=== PATIENT | female | born 1985 | race African-American/Black ===

== ENCOUNTER 2016-06-03 13:49 | Emergency (ER) | payer OTHER ==
[2016-06-03] MEDS ORDERED: SODIUM CHLORIDE 0.9% 1,000 ML IV ONE (14:02)
[2016-06-03] MEDS ORDERED: ONDANSETRON 4 MG/2 ML VIAL IVP STA (14:02)
[2016-06-03 14:34] LABS: Anisocytosis Slight; Basophils % (A) 1 %; CH 28.6; CHCM 31.8; Eosinophils # (A) 0.1 k/uL (0-0.7); Eosinophils % (A) 3 %; HCT 36.5 % (34.0-46.0); HGB 11.4 gm/dL (11.4-16.0); Luc # (Auto) 0.06; Luc % (Auto) 2; Lymphocytes % (A) 33 %; MCH 28.3 pg (25.0-35.0); MCHC 31.3 g/dL (31.0-37.0); MCV 90.4 fL (80.0-100.0); Monocytes # (A) 0.1 k/uL (0-1.0); Monocytes % (A) 3 %; Neutrophils # (A) 1.8 k/uL (1.3-7.7); Neutrophils % (A) 58 %; RBC 4.03 m/uL (3.80-5.40); RDW 16.6 % (11.5-15.5); WBC (Perox) 3.07
[2016-06-03 14:40] LABS: ALT 48 U/L (9-52); AST 68 U/L (14-36); Alkaline Phosphatase 70 U/L (38-126); Anion Gap 12 mmol/L; Blood Urea Nitrogen 9 mg/dL (7-17); Calcium 8.1 mg/dL (8.4-10.2); Carbon Dioxide 23 mmol/L (22-30); Chloride 105 mmol/L (98-107); Glucose 98 mg/dL (74-99); Non-African American GFR(MDRD) >60 (>60 ml/min/1.73 sqM); Sodium 140 mmol/L (137-145); Total Bilirubin 0.7 mg/dL (0.2-1.3); Total Protein 7.2 g/dL (6.3-8.2)
[2016-06-03 14:44] LABS: Potassium 4.1 mmol/L (3.5-5.1)
[2016-06-03 14:46] LABS: Amorphous Sediment,Urine Occasional /hpf; Appearance,Urine Turbid (Clear); Bilirubin,Urine Negative (Negative); Glucose,Urine (UA) Negative (Negative); Ketones,Urine Negative (Negative); Leukocyte Esterase,Urine Negative (Negative); Mucus,Urine Moderate /hpf; Nitrite,Urine Negative (Negative); PH, Urine 5.5 (5.0-8.0); Particle Count 20313; Protein,Urine 1+ (Negative); Squamous Epithelial Cell,Urine 19 /hpf (0-4); UA Billing (MACRO vs. MICRO) MICRO; WBC,Urine 4 /hpf (0-5)
--- NOTE | 2016-06-03 14:47 | ED ---
General Adult HPI - General Chief complaint: Extremity Problem,Nontraumatic Stated complaint: Leg Pain Time Seen by Provider: 06/03/16 14:00 Source: patient Mode of arrival: ambulatory Limitations: no limitations - History of Present Illness Initial comments: 31-year-old female with past medical history of alcoholism and seizures presenting for evaluation of extremity tingling in her left arm today and in bilateral lower extremities yesterday. She states that her symptoms started gradually, are better when she is moving around, and become worse when she sits still. She describes as a numbness tingling but maintains sensation when lifting or grabbing things. There is no radiation of her symptoms anywhere else and she states that there is associated dysuria, nausea, vomiting 2, and diarrhea. She denies any abdominal pain and her last alcoholic drink was a week ago. She states her primary concern is that this is related to her alcohol withdrawal and that she needs to be treated for alcohol withdrawal. She was prescribed Keppra on her last visit here after having another seizure but she states she hasn't been taking those medications because she believes this to be related to the alcohol only. She denies any seizure activity leading up to her presentation today. - Related Data Home Medications Medication Instructions Recorded Confirmed ALPRAZolam [Xanax] 1 mg PO TID PRN 07/05/14 04/17/16 Albuterol Inhaler [Ventolin Hfa 1 - 2 puff INHALATION RT-Q6H PRN 07/05/14 Inhaler] Verapamil HCl [Verapamil ER] 240 mg PO DAILY 07/05/14 04/17/16 Beclomethasone Dipropionate [Qvar 2 puff INHALATION RT-BID 04/17/16 04/17/16 80 mcg] Famotidine [Pepcid] 20 mg PO BID 04/17/16 04/17/16 Previous Rx's Medication Instructions Recorded Dicyclomine [Bentyl] 10 mg PO TID #20 capsule 04/14/16 Nicotine 7Mg/24Hr Patch [Habitrol] 1 patch TRANSDERM DAILY #14 patch 04/18/16 levETIRAcetam [Keppra] 750 mg PO Q12HR #60 tab 04/18/16 Allergies Allergy/AdvReac Type Severity Reaction Status Date / Time Penicillins Allergy Rash/Hives Verified 06/03/16 13:53 Review of Systems ROS Statement: Those systems with pertinent positive or pertinent negative responses have been documented in the HPI. General: Patient denies fever, chills. Admits to nausea and vomiting 2. HEENT: No visual changes. No eye pain. No nasal symptoms. No dysphagia.No odynophagia. No ENT pain. Cardiac: No chest pain. No palpitations. Pulmonary; No dyspnea. Denies cough. GI: No abdominal pain. Positive diarrhea. No constipation. No melena. No hematochezia. : Admits to dysuria but states this is chronic. No hematuria. No hesitancy. No urgency. No renal lithiasis history. Musculoskeletal: No musculoskeletal pain. No myalgia. Orthopedic: Denies fracture history. No arthralgia. Integumentary: Denies rash. Denies pruritis. Neurologic: Denies any lateralizing weakness. Denies numbness. Denies tingling. No seizure activity. Denies TIA or CVA. Heme/Onc: Denies anemia. Denies cancer. Denies adenopathy. ROS Other: All systems not noted in ROS Statement are negative. Past Medical History Past Medical History: Asthma, GERD/Reflux, Hypertension, Seizure Disorder History of Any Multi-Drug Resistant Organisms: None Reported Past Surgical History: No Surgical Hx Reported Additional Past Surgical History / Comment(s): tooth extractions Past Anesthesia/Blood Transfusion Reactions: No Reported Reaction Past Psychological History: Anxiety Smoking Status: Current every day smoker Past Alcohol Use History: None Reported Past Drug Use History: None Reported - Past Family History Mother Family Medical History: Asthma, Diabetes Mellitus, Hypertension General Exam - General Exam Comments Initial Comments: General: The patient is awake and alert, in no distress, and does not appear acutely ill. Eye: Pupils are equal, round and reactive to light, extra-ocular movements are intact; there is normal conjunctiva bilaterally. No signs of icterus. Ears, nose, mouth and throat: There are moist mucous membranes and no oral lesions. Neck: The neck is supple, there is no tenderness or JVD. Cardiovascular: There is a regular rate and rhythm. No murmur, rub or gallop is appreciated. Respiratory: Lungs are clear to auscultation, respirations are non-labored, breath sounds are equal. No wheezes, stridor, rales, or rhonchi. Gastrointestinal: Soft, non-distended, non-tender abdomen without masses or organomegaly noted. There is no rebound or guarding present. No CVA tenderness. Bowel sounds are unremarkable. Back: There is no tenderness to palpation in the midline. There is no obvious deformity. No rashes noted. Musculoskeletal: Normal ROM, no tenderness, There is no pedal edema. There is no calf tenderness or swelling. Sensation intact. Pulses equal bilaterally 2+. Neurological: CN II-XII intact, There are no obvious motor or sensory deficits. Coordination appears grossly intact. Speech is normal. Skin: Skin is warm and dry and no rashes or lesions are noted. Psychiatric: Cooperative, appropriate mood & affect, normal judgment. Limitations: no limitations Course Vital Signs 06/03/16 06/03/16 13:51 14:23 Temperature 97.5 F L Pulse Rate 115 H Respiratory 20 18 Rate Blood Pressure 131/87 O2 Sat by Pulse 99 Oximetry Medical Decision Making - Medical Decision Making 31-year-old female presenting for evaluation of left upper extremity and bilateral lower extremity numbness and tingling since yesterday. There is associated nausea, vomiting, diarrhea, and dysuria. She was last seen for seizures but states she has been taking her seizure medications. History of alcoholism and last drink was a week ago. On physical exam she has no neurologic deficits, cranial nerves II through XII intact, no abdominal pain to palpation and clear lung sounds bilaterally. We'll obtain labs, UA, and provide IV fluids and Zofran. The patient requested a drink and will be provided with a by mouth challenge. Patient reevaluated and had resolution of her symptoms. Labs revealed no significant abnormalities and these were discussed with the patient. She was informed that she would be discharged with instructions to follow-up with her primary care physician on Sunday but to return if her symptoms should worsen or persist. She was further counseled to meet with her neurologist to discuss continuing her antiepileptic medications as she hadn't been taking them since prescription. She stated that she didn't think she had a seizure disorder and that it was likely from her drinking. She further stated she would like to stop drinking completely and was advised to follow-up with her primary care physician for outpatient therapy/counseling. She acknowledged an understanding of this information and agreed with this plan of care. - Lab Data Result diagrams: 06/03/16 14:15 06/03/16 14:15 Lab Results 06/03/16 06/03/16 06/03/16 Range/Units 14:15 14:15 14:35 WBC 3.0 L (3.8-10.6) k/uL RBC 4.03 (3.80-5.40) m/uL Hgb 11.4 (11.4-16.0) gm/dL Hct 36.5 (34.0-46.0) % MCV 90.4 (80.0-100.0) fL MCH 28.3 (25.0-35.0) pg MCHC 31.3 (31.0-37.0) g/dL RDW 16.6 H (11.5-15.5) % Plt Count 241 (150-450) k/uL Neutrophils % 58 % Lymphocytes % 33 % Monocytes % 3 % Eosinophils % 3 % Basophils % 1 % Neutrophils # 1.8 (1.3-7.7) k/uL Lymphocytes # 1.0 (1.0-4.8) k/uL Monocytes # 0.1 (0-1.0) k/uL Eosinophils # 0.1 (0-0.7) k/uL Basophils # 0.0 (0-0.2) k/uL Anisocytosis Slight Sodium 140 (137-145) mmol/L Potassium 4.1 (3.5-5.1) mmol/L Chloride 105 (98-107) mmol/L Carbon Dioxide 23 (22-30) mmol/L Anion Gap 12 mmol/L BUN 9 (7-17) mg/dL Creatinine 0.58 (0.52-1.04) mg/dL Est GFR (MDRD) Af Amer >60 (>60 ml/min/1.73 sqM) Est GFR (MDRD) Non-Af >60 (>60 ml/min/1.73 sqM) Glucose 98 (74-99) mg/dL Calcium 8.1 L (8.4-10.2) mg/dL Total Bilirubin 0.7 (0.2-1.3) mg/dL AST 68 H (14-36) U/L ALT 48 (9-52) U/L Alkaline Phosphatase 70 (38-126) U/L Total Protein 7.2 (6.3-8.2) g/dL Albumin 3.9 (3.5-5.0) g/dL Lipase 281 (23-300) U/L Urine Color Urine Appearance (Clear) Urine pH (5.0-8.0) Ur Specific [place] (1.001-1.035) Urine Protein (Negative) Urine Glucose (UA) (Negative) Urine Ketones (Negative) Urine Blood (Negative) Urine Nitrate (Negative) Urine Bilirubin (Negative) Urine Urobilinogen (<2.0) mg/dL Ur Leukocyte Esterase (Negative) Urine WBC (0-5) /hpf Ur Squamous Epith Cells (0-4) /hpf Amorphous Sediment (None) /hpf Urine Mucus (None) /hpf Urine HCG, Qual Not Detected (Not Detectd) 06/03/16 Range/Units 14:35 WBC (3.8-10.6) k/uL RBC (3.80-5.40) m/uL Hgb (11.4-16.0) gm/dL Hct (34.0-46.0) % MCV (80.0-100.0) fL MCH (25.0-35.0) pg MCHC (31.0-37.0) g/dL RDW (11.5-15.5) % Plt Count (150-450) k/uL Neutrophils % % Lymphocytes % % Monocytes % % Eosinophils % % Basophils % % Neutrophils # (1.3-7.7) k/uL Lymphocytes # (1.0-4.8) k/uL Monocytes # (0-1.0) k/uL Eosinophils # (0-0.7) k/uL Basophils # (0-0.2) k/uL Anisocytosis Sodium (137-145) mmol/L Potassium (3.5-5.1) mmol/L Chloride (98-107) mmol/L Carbon Dioxide (22-30) mmol/L Anion Gap mmol/L BUN (7-17) mg/dL Creatinine (0.52-1.04) mg/dL Est GFR (MDRD) Af Amer (>60 ml/min/1.73 sqM) Est GFR (MDRD) Non-Af (>60 ml/min/1.73 sqM) Glucose (74-99) mg/dL Calcium (8.4-10.2) mg/dL Total Bilirubin (0.2-1.3) mg/dL AST (14-36) U/L ALT (9-52) U/L Alkaline Phosphatase (38-126) U/L Total Protein (6.3-8.2) g/dL Albumin (3.5-5.0) g/dL Lipase (23-300) U/L Urine Color Yellow Urine Appearance Turbid H (Clear) Urine pH 5.5 (5.0-8.0) Ur Specific [place] 1.030 (1.001-1.035) Urine Protein 1+ H (Negative) Urine Glucose (UA) Negative (Negative) Urine Ketones Negative (Negative) Urine Blood Negative (Negative) Urine Nitrate Negative (Negative) Urine Bilirubin Negative (Negative) Urine Urobilinogen 3.0 (<2.0) mg/dL Ur Leukocyte Esterase Negative (Negative) Urine WBC 4 (0-5) /hpf Ur Squamous Epith Cells 19 H (0-4) /hpf Amorphous Sediment Occasional H (None) /hpf Urine Mucus Moderate H (None) /hpf Urine HCG, Qual (Not Detectd) Disposition Clinical Impression: Intractable nausea and vomiting, Diarrhea Disposition: HOME SELF-CARE Condition: Stable Instructions: Gastroenteritis (ED), Dehydration (ED) Referrals: Jake Hernández DO [Primary Care Provider] - 1-2 days Duane Chaney MD [STAFF PHYSICIAN] - 1-2 days Time of Disposition: 16:03
[2016-06-03 16:13] VITALS: BP 135/92; PULSE 92; RESP 16; TEMP 97.7
== END 2016-06-03 16:13 | disposition home or self-care (01) ==
LOC: EC 13:49
DX: R11.2 Nausea with vomiting, unspecified (principal); R19.7 Diarrhea, unspecified; R20.2 Paresthesia of skin; R20.0 Anesthesia of skin; R30.0 Dysuria; F10.20 Alcohol dependence, uncomplicated; K21.9 Gastro-esophageal reflux disease without esophagitis; J45.909 Unspecified asthma, uncomplicated; I10 Essential (primary) hypertension; G40.909 Epilepsy, unspecified, not intractable, without status epilepticus; F41.9 Anxiety disorder, unspecified; F17.200 Nicotine dependence, unspecified, uncomplicated; Z79.899 Other long term (current) drug therapy; Z88.0 Allergy status to penicillin
CPT/HCPCS: 36415; 80053; 83690; 85025; 81001; 81025; 99283; 96374; 96361 ×2; J2405

== ENCOUNTER 2016-06-24 09:16 | Emergency (ER) | payer OTHER ==
[2016-06-24] MEDS ORDERED: SODIUM CHLORIDE 0.9% 1,000 ML IV STA ×3 (09:30→11:11)
[2016-06-24] MEDS ORDERED: METOCLOPRAMIDE 5 MG/ML 2 ML VIAL IVP STA (09:30)
--- NOTE | 2016-06-24 09:41 | ED ---
Abdominal Pain HPI - General Chief Complaint: Abdominal Pain Stated Complaint: ABDOMINAL PAIN Time Seen by Provider: 06/24/16 09:26 Source: patient, RN notes reviewed Mode of arrival: ambulatory Limitations: no limitations - History of Present Illness Initial Comments: 31-year-old female who is an alcoholic presents to the emergency department with a chief complaint of abdominal pain nausea vomiting diarrhea. Patient states that on and off for 2 months. Patient states that she does drink. Patient states she saw her doctor and they were informed that she needs to quit drinking. Patient states that she has had nausea vomiting diarrhea. Patient does admit to generalized diffuse abdominal pain. Patient states this been constant for the past 2 months. Patient states that she did notice some blood in her vomit a few days ago so she was concerned. Patient states there has been blood since. Patient states there is no fevers or chills. Patient denies any other significant health history. Patient states that she did have a cold recently as well as placed on antibiotics that was a few weeks ago. Patient states that she is not currently having any other symptoms at this time. Patient denies any recent fever, chills, shortness of breath, chest pain, back pain, numbness or tingling, dysuria or hematuria, constipation or headaches or visual changes, or any other current symptoms. - Related Data Home Medications Medication Instructions Recorded Confirmed ALPRAZolam [Xanax] 1 mg PO TID PRN 07/05/14 04/17/16 Verapamil HCl [Verapamil ER] 240 mg PO DAILY 07/05/14 04/17/16 Previous Rx's Medication Instructions Recorded Ondansetron Odt [Zofran ODT] 4 mg PO Q8HR PRN #20 tab 06/24/16 Allergies Allergy/AdvReac Type Severity Reaction Status Date / Time Penicillins Allergy Rash/Hives Verified 06/24/16 09:20 Review of Systems ROS Statement: Those systems with pertinent positive or pertinent negative responses have been documented in the HPI. ROS Other: All systems not noted in ROS Statement are negative. Past Medical History Past Medical History: Asthma, GERD/Reflux, Hypertension, Seizure Disorder History of Any Multi-Drug Resistant Organisms: None Reported Past Surgical History: No Surgical Hx Reported Additional Past Surgical History / Comment(s): tooth extractions Past Anesthesia/Blood Transfusion Reactions: No Reported Reaction Past Psychological History: Anxiety Smoking Status: Current every day smoker Past Alcohol Use History: None Reported Past Drug Use History: None Reported - Past Family History Mother Family Medical History: Asthma, Diabetes Mellitus, Hypertension General Exam - General Exam Comments Initial Comments: General: The patient is awake and alert, in no distress, and does not appear acutely ill. Eye: Pupils are equal, round. Ears, nose, mouth and throat: There are moist mucous membranes. Neck: The neck is supple, there is no tenderness. Cardiovascular: There is a regular rate and rhythm. No murmur, rub or gallop is appreciated. Respiratory: Lungs are clear to auscultation, respirations are non-labored, breath sounds are equal. No wheezes, stridor, rales, or rhonchi. Gastrointestinal: Soft, non-distended, non-tender abdomen without masses or organomegaly noted. There is no rebound or guarding present. No CVA tenderness. Bowel sounds are unremarkable. Back: There is no tenderness to palpation in the midline. There is no obvious deformity. No rashes noted. Musculoskeletal: Normal ROM, no tenderness, There is no pedal edema. There is no calf tenderness or swelling. Sensation intact. Pulses equal bilaterally 2+. Neurological: CN II-XII intact, There are no obvious motor or sensory deficits. Coordination appears grossly intact. Speech is normal. Skin: Skin is warm and dry and no rashes or lesions are noted. Psychiatric: Cooperative, appropriate mood & affect, normal judgment. Limitations: no limitations Course Vital Signs 06/24/16 06/24/16 09:16 09:58 Temperature 97.7 F Pulse Rate 110 H 110 H Respiratory 18 20 Rate Blood Pressure 154/105 123/75 O2 Sat by Pulse 99 Oximetry Medical Decision Making - Medical Decision Making 31-year-old female presents to the emergency department with a chief complaint of abdominal pain nausea vomiting diarrhea 2 months. At this time patient's lab work is reviewed. At this time patient does appear to have a mildly elevated lipase. We discussed she most likely has acute pancreatitis. We discussed that is very mild elevation. We discussed that she can go home she needs to increase her fluid of plain water and use the nausea medication as prescribed. We discussed that this pain worsened that she needs to come back to be hospitalized. We did discuss this with the patient we did discuss the severity of her illness. She stated that she understood we did discuss refrain from alcohol. Patient states that she understood she does sit comfortable with going home and would like to go home. All her questions have been answered. She will be discharged. - Lab Data Result diagrams: 06/24/16 09:59 06/24/16 09:59 Lab Results 06/24/16 06/24/16 06/24/16 Range/Units 09:59 09:59 10:25 WBC 4.8 (3.8-10.6) k/uL RBC 4.00 (3.80-5.40) m/uL Hgb 11.6 (11.4-16.0) gm/dL Hct 37.2 (34.0-46.0) % MCV 92.9 (80.0-100.0) fL MCH 29.0 (25.0-35.0) pg MCHC 31.3 (31.0-37.0) g/dL RDW 19.1 H (11.5-15.5) % Plt Count 212 (150-450) k/uL Neutrophils % 54 % Lymphocytes % 36 % Monocytes % 5 % Eosinophils % 1 % Basophils % 1 % Neutrophils # 2.6 (1.3-7.7) k/uL Lymphocytes # 1.8 (1.0-4.8) k/uL Monocytes # 0.3 (0-1.0) k/uL Eosinophils # 0.1 (0-0.7) k/uL Basophils # 0.0 (0-0.2) k/uL Anisocytosis Slight Macrocytosis Slight Sodium 136 L (137-145) mmol/L Potassium 4.0 (3.5-5.1) mmol/L Chloride 101 (98-107) mmol/L Carbon Dioxide 20 L (22-30) mmol/L Anion Gap 15 mmol/L BUN 5 L (7-17) mg/dL Creatinine 0.60 (0.52-1.04) mg/dL Est GFR (MDRD) Af Amer >60 (>60 ml/min/1.73 sqM) Est GFR (MDRD) Non-Af >60 (>60 ml/min/1.73 sqM) Glucose 120 H (74-99) mg/dL Calcium 9.1 (8.4-10.2) mg/dL Total Bilirubin 1.4 H (0.2-1.3) mg/dL AST 67 H (14-36) U/L ALT 38 (9-52) U/L Alkaline Phosphatase 74 (38-126) U/L Total Protein 8.1 (6.3-8.2) g/dL Albumin 4.3 (3.5-5.0) g/dL Amylase 41 (30-110) U/L Lipase 421 H (23-300) U/L Urine Color Urine Appearance (Clear) Urine pH (5.0-8.0) Ur Specific [place] (1.001-1.035) Urine Protein (Negative) Urine Glucose (UA) (Negative) Urine Ketones (Negative) Urine Blood (Negative) Urine Nitrate (Negative) Urine Bilirubin (Negative) Urine Urobilinogen (<2.0) mg/dL Ur Leukocyte Esterase (Negative) Urine HCG, Qual Not Detected (Not Detectd) Serum Alcohol <10 mg/dL 06/24/16 Range/Units 10:25 WBC (3.8-10.6) k/uL RBC (3.80-5.40) m/uL Hgb (11.4-16.0) gm/dL Hct (34.0-46.0) % MCV (80.0-100.0) fL MCH (25.0-35.0) pg MCHC (31.0-37.0) g/dL RDW (11.5-15.5) % Plt Count (150-450) k/uL Neutrophils % % Lymphocytes % % Monocytes % % Eosinophils % % Basophils % % Neutrophils # (1.3-7.7) k/uL Lymphocytes # (1.0-4.8) k/uL Monocytes # (0-1.0) k/uL Eosinophils # (0-0.7) k/uL Basophils # (0-0.2) k/uL Anisocytosis Macrocytosis Sodium (137-145) mmol/L Potassium (3.5-5.1) mmol/L Chloride (98-107) mmol/L Carbon Dioxide (22-30) mmol/L Anion Gap mmol/L BUN (7-17) mg/dL Creatinine (0.52-1.04) mg/dL Est GFR (MDRD) Af Amer (>60 ml/min/1.73 sqM) Est GFR (MDRD) Non-Af (>60 ml/min/1.73 sqM) Glucose (74-99) mg/dL Calcium (8.4-10.2) mg/dL Total Bilirubin (0.2-1.3) mg/dL AST (14-36) U/L ALT (9-52) U/L Alkaline Phosphatase (38-126) U/L Total Protein (6.3-8.2) g/dL Albumin (3.5-5.0) g/dL Amylase (30-110) U/L Lipase (23-300) U/L Urine Color Yellow Urine Appearance Clear (Clear) Urine pH 5.5 (5.0-8.0) Ur Specific [place] 1.011 (1.001-1.035) Urine Protein Trace H (Negative) Urine Glucose (UA) Negative (Negative) Urine Ketones Negative (Negative) Urine Blood Negative (Negative) Urine Nitrate Negative (Negative) Urine Bilirubin Negative (Negative) Urine Urobilinogen <2.0 (<2.0) mg/dL Ur Leukocyte Esterase Negative (Negative) Urine HCG, Qual (Not Detectd) Serum Alcohol mg/dL - Radiology Data Radiology results: report reviewed, image reviewed Disposition Clinical Impression: Acute pancreatitis, Hyponatremia, Dehydration, Alcohol abuse Disposition: HOME SELF-CARE Condition: Serious Instructions: Pancreatitis (ED) Additional Instructions: Please use medication as discussed. Please follow up with family doctor if symptoms have not improved over the next two days. Please return to the emergency room if your symptoms increase or worsen or for any other concerns. Prescriptions: Ondansetron Odt [Zofran ODT] 4 mg PO Q8HR PRN #20 tab PRN Reason: Nausea Referrals: Jake Hernández DO [Primary Care Provider] - 1-2 days Time of Disposition: 11:11
[2016-06-24 10:08] LABS: Anisocytosis Slight; Basophils % (A) 1 %; CH 29.5; CHCM 31.8; Eosinophils # (A) 0.1 k/uL (0-0.7); Eosinophils % (A) 1 %; HCT 37.2 % (34.0-46.0); HDW 2.16; HGB 11.6 gm/dL (11.4-16.0); Luc # (Auto) 0.13; Luc % (Auto) 3; Lymphocytes # (A) 1.8 k/uL (1.0-4.8); Lymphocytes % (A) 36 %; MCHC 31.3 g/dL (31.0-37.0); MCV 92.9 fL (80.0-100.0); Macrocytosis Slight; Mean Platelet Volume 8.1; Monocytes # (A) 0.3 k/uL (0-1.0); Monocytes % (A) 5 %; Neutrophils # (A) 2.6 k/uL (1.3-7.7); Neutrophils % (A) 54 %; RDW 19.1 % (11.5-15.5); WBC 4.8 k/uL (3.8-10.6); WBC (Perox) 4.79
[2016-06-24 10:21] LABS: ALT 38 U/L (9-52); AST 67 U/L (14-36); Alcohol <10 mg/dL; Alkaline Phosphatase 74 U/L (38-126); Amylase 41 U/L (30-110); Anion Gap 15 mmol/L; Blood Urea Nitrogen 5 mg/dL (7-17); Calcium 9.1 mg/dL (8.4-10.2); Carbon Dioxide 20 mmol/L (22-30); Chloride 101 mmol/L (98-107); Glucose 120 mg/dL (74-99); Non-African American GFR(MDRD) >60 (>60 ml/min/1.73 sqM); Sodium 136 mmol/L (137-145); Total Bilirubin 1.4 mg/dL (0.2-1.3); Total Protein 8.1 g/dL (6.3-8.2)
[2016-06-24 10:37] LABS: Appearance,Urine Clear (Clear); Bilirubin,Urine Negative (Negative); Glucose,Urine (UA) Negative (Negative); Ketones,Urine Negative (Negative); Leukocyte Esterase,Urine Negative (Negative); Nitrite,Urine Negative (Negative); PH, Urine 5.5 (5.0-8.0); Protein,Urine Trace (Negative); Specific Gravity,Urine 1.011 (1.001-1.035); UA Billing (MACRO vs. MICRO) CHEM; Urobilinogen,Urine <2.0 mg/dL (<2.0)
--- NOTE | 2016-06-24 11:03 | XR ---
EXAMINATION TYPE: XR abdomen 2V DATE OF EXAM: 06/24/2016 10:53 AM COMPARISON: 04/14/2016 HISTORY: Pain TECHNIQUE: Single supine KUB image of the abdomen is obtained FINDINGS: Small bowel demonstrates no evidence for dilatation or air fluid levels. Gas and fecal material is seen in non-distended colon. No convincing evidence for pneumoperitoneum. No unusual calcifications. The lung bases are clear. The osseous structures are intact. IMPRESSION: 1. Overall nonobstructive bowel gas pattern.
[2016-06-24 11:17] VITALS: BP 107/56; PULSE 102; RESP 16; TEMP 98.6
== END 2016-06-24 12:13 | disposition home or self-care (01) ==
LOC: EC 09:16
DX: K85.90 Acute pancreatitis without necrosis or infection, unspecified (principal); E87.1 Hypo-osmolality and hyponatremia; E86.0 Dehydration; F10.10 Alcohol abuse, uncomplicated; R74.8 Abnormal levels of other serum enzymes; Z88.0 Allergy status to penicillin; F17.200 Nicotine dependence, unspecified, uncomplicated; I10 Essential (primary) hypertension
CPT/HCPCS: 99284; 96374; 96361 ×2; 36415; 80053; 82150; 83690; 85025; 81003; 81025; 80320; 74020; J2765

== ENCOUNTER 2016-06-26 17:44 | Observation (INO) | payer OTHER ==
[2016-06-26] MEDS ORDERED: SODIUM CHLORIDE 0.9% 1,000 ML IV STA (18:23)
[2016-06-26 18:57] LABS: Anisocytosis Slight; Basophils % (A) 0 %; CH 29.3; CHCM 30.6; Eosinophils # (A) 0.1 k/uL (0-0.7); Eosinophils % (A) 1 %; HCT 34.2 % (34.0-46.0); HDW 2.11; HGB 10.5 gm/dL (11.4-16.0); Hypochromasia Slight; Luc # (Auto) 0.18; Luc % (Auto) 4; Lymphocytes # (A) 1.5 k/uL (1.0-4.8); Lymphocytes % (A) 30 %; MCH 29.6 pg (25.0-35.0); MCHC 30.8 g/dL (31.0-37.0); MCV 96.1 fL (80.0-100.0); Macrocytosis Slight; Mean Platelet Volume 7.8; Monocytes # (A) 0.2 k/uL (0-1.0); Monocytes % (A) 5 %; Neutrophils # (A) 3.1 k/uL (1.3-7.7); Neutrophils % (A) 60 %; RBC 3.56 m/uL (3.80-5.40); RDW 19.4 % (11.5-15.5); WBC 5.1 k/uL (3.8-10.6); WBC (Perox) 5.26
--- NOTE | 2016-06-26 18:58 | ED ---
General Adult HPI - General Chief complaint: Seizure Stated complaint: seizure,fall Time Seen by Provider: 06/26/16 18:13 Source: patient, EMS, RN notes reviewed Mode of arrival: EMS Limitations: no limitations - History of Present Illness Initial comments: Patient is a 31-year-old female chief complaint of a fall and seizure like activity. Patient arrived via EMS. Patient reports that she has history of alcohol abuse and has not had a alcohol drank in the past week and a half. Patient reports that this has happened before when she has discontinue drinking. Patient states that he was seen in the emergency room 2 days ago and was diagnosed with pancreatitis. Patient was given nausea medication. Patient reports that she has no pain at this time including abdominal pain, chest pain or shortness of breath. She states that there is possibility that she fell and hit her head however she is unsure. Patient is somewhat lethargic at this time. She states that she is supposed to take Keppra for seizures however she does not take it. - Related Data Home Medications Medication Instructions Recorded Confirmed Verapamil HCl [Verapamil ER] 240 mg PO DAILY 07/05/14 06/26/16 Desvenlafaxine Succinate [Pristiq] 50 mg PO DAILY 06/26/16 06/26/16 Gabapentin [Neurontin] 300 mg PO TID 06/26/16 06/26/16 Ranitidine HCl [Zantac] 150 mg PO BID 06/26/16 06/26/16 Allergies Allergy/AdvReac Type Severity Reaction Status Date / Time Penicillins Allergy Rash/Hives Verified 06/26/16 18:06 Review of Systems ROS Statement: Those systems with pertinent positive or pertinent negative responses have been documented in the HPI. ROS Other: All systems not noted in ROS Statement are negative. Past Medical History Past Medical History: Asthma, GERD/Reflux, Hypertension, Seizure Disorder History of Any Multi-Drug Resistant Organisms: None Reported Past Surgical History: No Surgical Hx Reported Additional Past Surgical History / Comment(s): tooth extractions Past Anesthesia/Blood Transfusion Reactions: No Reported Reaction Past Psychological History: Anxiety Smoking Status: Current every day smoker Past Alcohol Use History: None Reported Past Drug Use History: None Reported - Past Family History Mother Family Medical History: Asthma, Diabetes Mellitus, Hypertension General Exam - General Exam Comments Initial Comments: Patient is a morbidly obese 31-year-old female. She does not appear in any acute distress at this time. Patient is alert and oriented 3 Limitations: no limitations General appearance: alert, in no apparent distress Head exam: Present: atraumatic, normocephalic, normal inspection Eye exam: Present: normal appearance, PERRL, EOMI. Absent: scleral icterus, conjunctival injection, periorbital swelling ENT exam: Present: normal exam, normal oropharynx, mucous membranes moist, TM's normal bilaterally Neck exam: Present: normal inspection. Absent: tenderness, meningismus, lymphadenopathy Respiratory exam: Present: normal lung sounds bilaterally. Absent: respiratory distress, wheezes, rales, rhonchi, stridor Cardiovascular Exam: Present: regular rate, normal rhythm, normal heart sounds. Absent: systolic murmur, diastolic murmur, rubs, gallop, clicks GI/Abdominal exam: Present: soft, normal bowel sounds. Absent: distended, tenderness, guarding, rebound, rigid Extremities exam: Present: normal inspection, full ROM, normal capillary refill. Absent: tenderness, pedal edema, joint swelling, calf tenderness Back exam: Present: normal inspection Neurological exam: Present: alert, oriented X3, CN II-XII intact, other ( Patient appears to be somewhat lethargic.). Absent: normal gait Psychiatric exam: Present: normal affect, normal mood Skin exam: Present: warm, dry, intact, normal color. Absent: rash Course Vital Signs 06/26/16 06/26/16 06/26/16 17:47 19:21 21:29 Temperature 98.7 F 98.1 F Pulse Rate 101 H 100 104 H Respiratory 18 16 18 Rate Blood Pressure 143/83 135/74 131/72 O2 Sat by Pulse 98 100 100 Oximetry - Reevaluation(s) Reevaluation #1: 06/26/16 19:32 Patient had a second seizure while in the EC. Patient was given 1 mg of Ativan IV push. Patient was postictal and sleeping for approximately 5 minutes afterwards. Patient awoke and is alert and oriented 3 at this time. Medical Decision Making - Medical Decision Making Patient is a 31-year-old female with chief complaint of seizure is due to alcohol withdrawal. Patient had a second seizure on the emergency room and was given Ativan.. Patient's labs were obtained and patient does have an elevated lipase from 2 days ago. Lipase is elevated at 673. Patient was given IV banana bag. Admitted or alcohol induced seizure and placed on CIWA protocols. Patient also will be given Keppra and clear liquid diet for pancreatitis. Patient will also receive a neurology consult. - Lab Data Result diagrams: 06/26/16 17:53 06/26/16 17:53 Lab Results 06/26/16 06/26/16 06/26/16 Range/Units 17:53 17:53 20:02 WBC 5.1 (3.8-10.6) k/uL RBC 3.56 L (3.80-5.40) m/uL Hgb 10.5 L (11.4-16.0) gm/dL Hct 34.2 (34.0-46.0) % MCV 96.1 (80.0-100.0) fL MCH 29.6 (25.0-35.0) pg MCHC 30.8 L (31.0-37.0) g/dL RDW 19.4 H (11.5-15.5) % Plt Count 191 (150-450) k/uL Neutrophils % 60 % Lymphocytes % 30 % Monocytes % 5 % Eosinophils % 1 % Basophils % 0 % Neutrophils # 3.1 (1.3-7.7) k/uL Lymphocytes # 1.5 (1.0-4.8) k/uL Monocytes # 0.2 (0-1.0) k/uL Eosinophils # 0.1 (0-0.7) k/uL Basophils # 0.0 (0-0.2) k/uL Hypochromasia Slight Anisocytosis Slight Macrocytosis Slight Sodium 139 (137-145) mmol/L Potassium 4.4 (3.5-5.1) mmol/L Chloride 103 (98-107) mmol/L Carbon Dioxide 23 (22-30) mmol/L Anion Gap 13 mmol/L BUN 10 (7-17) mg/dL Creatinine 0.61 (0.52-1.04) mg/dL Est GFR (MDRD) Af Amer >60 (>60 ml/min/1.73 sqM) Est GFR (MDRD) Non-Af >60 (>60 ml/min/1.73 sqM) Glucose 116 H (74-99) mg/dL Calcium 9.1 (8.4-10.2) mg/dL Total Bilirubin 0.4 (0.2-1.3) mg/dL AST 52 H (14-36) U/L ALT 40 (9-52) U/L Alkaline Phosphatase 58 (38-126) U/L Total Protein 7.4 (6.3-8.2) g/dL Albumin 4.0 (3.5-5.0) g/dL Amylase 54 (30-110) U/L Lipase 678 H (23-300) U/L Urine Color Yellow Urine Appearance Clear (Clear) Urine pH 6.0 (5.0-8.0) Ur Specific [place] 1.017 (1.001-1.035) Urine Protein Negative (Negative) Urine Glucose (UA) Negative (Negative) Urine Ketones Negative (Negative) Urine Blood Negative (Negative) Urine Nitrate Negative (Negative) Urine Bilirubin Negative (Negative) Urine Urobilinogen 3.0 (<2.0) mg/dL Ur Leukocyte Esterase Trace H (Negative) Urine RBC 1 (0-5) /hpf Urine WBC 11 H (0-5) /hpf Ur Squamous Epith Cells 10 H (0-4) /hpf Amorphous Sediment Rare H (None) /hpf Urine Mucus Rare H (None) /hpf Urine Opiates Screen Not Detected (NotDetected) Ur Oxycodone Screen Not Detected (NotDetected) Urine Methadone Screen Not Detected (NotDetected) Ur Propoxyphene Screen Not Detected (NotDetected) Ur Barbiturates Screen Not Detected (NotDetected) U Tricyclic Antidepress Not Detected (NotDetected) Ur Phencyclidine Scrn Not Detected (NotDetected) Ur Amphetamines Screen Not Detected (NotDetected) U Methamphetamines Scrn Not Detected (NotDetected) U Benzodiazepines Scrn Detected H (NotDetected) Urine Cocaine Screen Not Detected (NotDetected) U Marijuana (THC) Screen Not Detected (NotDetected) Serum Alcohol <10 mg/dL 06/26/16 21:45 EKG shows normal sinus rhythm. Injury. 77 bpm. : 54 ms. QRS duration 74 ms. QT/QTc is 384/434 ms. - Radiology Data Radiology results: report reviewed (CT of the brain and C-spine are negative for any acute changes. There is no change compared to 04/06/2013) Disposition Clinical Impression: Alcohol withdrawal seizure, Pancreatitis, Elevated lipase Disposition: ADMITTED IP TO THIS HOSP
[2016-06-26 19:07] LABS: ALT 40 U/L (9-52); AST 52 U/L (14-36); Alcohol <10 mg/dL; Alkaline Phosphatase 58 U/L (38-126); Amylase 54 U/L (30-110); Anion Gap 13 mmol/L; Blood Urea Nitrogen 10 mg/dL (7-17); Calcium 9.1 mg/dL (8.4-10.2); Carbon Dioxide 23 mmol/L (22-30); Chloride 103 mmol/L (98-107); Glucose 116 mg/dL (74-99); Non-African American GFR(MDRD) >60 (>60 ml/min/1.73 sqM); Potassium 4.4 mmol/L (3.5-5.1); Sodium 139 mmol/L (137-145); Total Bilirubin 0.4 mg/dL (0.2-1.3); Total Protein 7.4 g/dL (6.3-8.2)
[2016-06-26] MEDS ORDERED: LORazepam 2 MG/ML SYRINGE IV STA (19:18)
[2016-06-26] MEDS ORDERED: SODIUM CHLORIDE 0.9% 1,000 ML with MVI, ADULT NO.4 WITH VIT K 10 ML, THIAMINE 100 MG, F... IV ONE ×4 (19:19)
[2016-06-26] MEDS ORDERED: levETIRAcetam IV 1,000 MG in SALINE 1 100ML.BAG IVPB STA (19:41)
--- NOTE | 2016-06-26 20:21 | CT ---
EXAMINATION TYPE: CT brain tamraine wo con DATE OF EXAM: 06/26/2016 8:08 PM COMPARISON: 12/30/2015 and 04/06/2013 HISTORY: Seizures today. History of seizures. CT DLP: 1886.00 mGycm Automated exposure control for dose reduction was used. TECHNIQUE: CT scan of the head and cervical spine are performed without contrast. FINDINGS: Ventricles and sulci appear normal. There is no mass effect or midline shift. There is no sign of intracranial hemorrhage. The calvarium is intact. The cervical vertebra have normal spacing and alignment. Posterior elements are intact. Skull base is intact. I see no bony destructive process. Facet joints appear normal. IMPRESSION: Negative CT scan of the brain and cervical spine. No change compared to 04/06/2013.
[2016-06-26 20:37] LABS: Amorphous Sediment,Urine Rare /hpf; Appearance,Urine Clear (Clear); Bilirubin,Urine Negative (Negative); Glucose,Urine (UA) Negative (Negative); Ketones,Urine Negative (Negative); Leukocyte Esterase,Urine Trace (Negative); Mucus,Urine Rare /hpf; Nitrite,Urine Negative (Negative); Particle Count 4031; Protein,Urine Negative (Negative); RBC,Urine 1 /hpf (0-5); Specific Gravity,Urine 1.017 (1.001-1.035); Squamous Epithelial Cell,Urine 10 /hpf (0-4); UA Billing (MACRO vs. MICRO) MICRO; WBC,Urine 11 /hpf (0-5)
[2016-06-26] MEDS ORDERED: NALOXONE 0.4 MG/ML 1 ML VIAL IV PRN (21:22)
[2016-06-26] MEDS ORDERED: LORazepam 2 MG/ML SYRINGE IV PRN ×3 (21:23)
[2016-06-26] MEDS: KETOROLAC 30 MG/ML 1 ML VIAL IVP PRN (21:29)
[2016-06-26] MEDS ORDERED: MAG HYDROX/AL HYDROX/SIMETH 30 ML, HYOSCYAMINE ELIXIR 10 ML, CIMETIDINE HCL 300 MG PO STA ×3 (23:04)
[2016-06-27] MEDS: THIAMINE 100 MG TAB PO SCH ×3 (00:47→16:53)
[2016-06-27] MEDS: SODIUM CHLORIDE 0.9% 1,000 ML IV SCH ×4 (00:49→20:36)
[2016-06-27 05:29] VITALS: BMI 31.9
[2016-06-27] MEDS: KETOROLAC 30 MG/ML 1 ML VIAL IVP PRN ×2 (08:02→23:07)
[2016-06-27] MEDS ORDERED: BUTALB/APAP/CAFF 50-325-40MG TAB PO STA (10:56)
--- NOTE | 2016-06-27 12:12 | HP ---
DATE OF ADMISSION: The patient is a 31-year-old female who came in with complaints of seizure. Patient was unable to give any history regarding the episode. Patient personally do not believe patient had a seizure, although I did talk to her mother on the phone who witnessed her seizure and the patient apparently fell down from stairs and had seizure-like activity without any loss of bowel or bladder incontinence and postictal confusion. Patient appears to have aura which is headache and patient in the past has alcohol withdrawal seizures, was kept on Keppra. The patient stopped taking Keppra. Although patient's last was during her previous hospitalizations and since then patient did not drink any alcohol. Patient's EEG during her last hospitalization was negative. Apparently the patient had another episode of seizure evidenced by ER staff. Patient denied any fever, chills, abdominal pain. Patient denied any nausea, vomiting. Patient is on seizure precautions. Neurology was consulted. Patient was started back on Keppra and Ativan on p.r.n. basis for seizures. REVIEW OF SYSTEMS: CONSTITUTIONAL: No fever, no malaise, no fatigue. HEENT: No recent visual problems or hearing problems. Denied any sore throat. CARDIOVASCULAR: No chest pain, orthopnea, PND, no palpitations, no syncope. PULMONARY: No shortness of breath, no cough, no hemoptysis. GASTROINTESTINAL: No diarrhea, no nausea, no vomiting, no abdominal pain. Normoactive bowel sounds. NEUROLOGICAL: As described in HPI. HEMATOLOGICAL: Denies any bleeding or petechiae. GENITOURINARY: Denies any burning micturition, frequency, or urgency. MUSCULOSKELETAL/RHEUMATOLOGICAL: Denies any joint pain, swelling, or any muscle pain. ENDOCRINE: Denies any polyuria or polydipsia. The rest of the 14 point review of systems is negative. Home medications include: 1. Verapamil. 2. Desvenlafaxine. 3. Gabapentin. 4. Ranitidine. ALLERGIES: Allergies to PENICILLINS. PAST MEDICAL HISTORY: Asthma, gastroesophageal reflux disease, hypertension, seizure disorder and anxiety disorder. Patient has neuropathic pain. Patient does smoke. Denied any alcohol abuse or drug abuse. FAMILY HISTORY: Mother had asthma, diabetes mellitus, and hypertension. PHYSICAL EXAMINATION: Temperature 97.8, pulse of 86, respiratory rate of 16, blood pressure is 128/89, saturating at 100% on room air. GENERAL: The patient is alert and oriented x3, not in any acute distress. Well developed, well nourished. HEENT: Pupils are round and equally reacting to light. EOMI. No scleral icterus. No conjunctival pallor. Normocephalic, atraumatic. No pharyngeal erythema. No thyromegaly. CARDIOVASCULAR: S1 and S2 present. No murmurs, rubs, or gallops. PULMONARY: Chest is clear to auscultation, no wheezing or crackles. ABDOMEN: Soft, nontender, nondistended, normoactive bowel sounds. No palpable organomegaly. MUSCULOSKELETAL: No joint swelling or deformity. EXTREMITIES: No cyanosis, clubbing, or pedal edema. NEUROLOGICAL: Gross neurological examination did not reveal any focal deficits. SKIN: No rashes. LABORATORY DATA: CBC, CMP, no significant abnormality was appreciated except for mildly low hemoglobin of 10.5, which is chronic normocytic anemia, etiology unknown. CT of the head and cervical spine is essentially negative. ASSESSMENT AND PLAN: 1. Possible seizure secondary to noncompliance with medication. Patient was started back on Keppra. Neurology was consulted. I ordered a sleep and awake EEG. 2. Hypertension and tachycardia secondary to rebound from verapamil, which was re-ordered again. 3. Gastroesophageal reflux disease. 4. Neuropathy from chronic low back pain. 5. Obesity. Counseling was provided. 6. Asthma without any acute exacerbation. 7. Nicotine abuse. Counseling was provided. PLAN: As mentioned above. Patient's primary care physician is Dr. Jake Hernández.
[2016-06-27] MEDS: GABAPENTIN 300 MG CAP PO SCH ×2 (16:53→23:01)
[2016-06-27] MEDS ORDERED: LORazepam 2 MG/ML SYRINGE IV PRN (18:25)
--- NOTE | 2016-06-27 18:28 | P.CNNES ---
History of Present Illness Consult date: 06/27/16 History of Present Illness: The patient is a 31-year-old right-handed female with history of seizure disorder. She was admitted to the hospital last summer with seizure disorder and placed on Keppra. She reports that she felt that her seizure was alcohol withdrawal related and she did not take her Keppra. She is admitted now with a breakthrough seizure which occurred yesterday. The patient states that she had a blackout but her son and mother witnessed a grand mal seizure. The patient states that she last drank alcohol about 10 days ago. Prior to that she was drinking on a regular basis. She denies any focal weakness or dizziness or headache Review of Systems Eyes: denies blurred vision, denies pain Ears, nose, mouth and throat: Reports as per HPI Cardiovascular: Denies chest pain, Denies shortness of breath Respiratory: Denies cough Gastrointestinal: Denies abdominal pain, Denies diarrhea, Denies nausea, Denies vomiting Genitourinary: Denies dysuria, Denies hematuria Musculoskeletal: Denies myalgias Integumentary: Denies pruritus, Denies rash Neurological: Denies numbness, Denies weakness Psychiatric: Denies anxiety, Denies depression Endocrine: Denies fatigue, Denies weight change Past Medical History Past Medical History: Asthma, GERD/Reflux, Hypertension, Seizure Disorder History of Any Multi-Drug Resistant Organisms: None Reported Past Surgical History: No Surgical Hx Reported Additional Past Surgical History / Comment(s): tooth extractions Past Anesthesia/Blood Transfusion Reactions: No Reported Reaction Past Psychological History: Anxiety Smoking Status: Current every day smoker Past Alcohol Use History: None Reported Past Drug Use History: None Reported - Past Family History Mother Family Medical History: Asthma, Diabetes Mellitus, Hypertension Medications and Allergies Home Medications Medication Instructions Recorded Confirmed Type Verapamil HCl [Verapamil ER] 240 mg PO DAILY 07/05/14 06/26/16 History Desvenlafaxine Succinate [Pristiq] 50 mg PO DAILY 06/26/16 06/26/16 History Gabapentin [Neurontin] 300 mg PO TID 06/26/16 06/26/16 History Ranitidine HCl [Zantac] 150 mg PO BID 06/26/16 06/26/16 History Allergies Allergy/AdvReac Type Severity Reaction Status Date / Time Penicillins Allergy Rash/Hives Verified 06/26/16 18:06 Physical Examination - Vital Signs Vital Signs: Vital Signs Temp Pulse Resp BP Pulse Ox 06/27/16 15:00 98.0 F 84 16 123/67 100 06/27/16 07:00 97.8 F 86 16 128/89 100 06/26/16 22:56 98.2 F 97 16 130/77 100 06/26/16 22:55 16 Intake and Output 06/27/16 06/27/16 06/27/16 06:59 14:59 22:59 Intake Total 320 Balance 320 Intake: IV 320 Sodium Chloride 0.9% 1, 320 000 ml @ 100 mls/hr IV . Q10H [facility] Rx#:[id number] Other: # Voids 0 2 - Constitutional General appearance: average body habitus, obese - EENT EENT: PERRL, vision intact - Respiratory Respiratory: chest non-tender, lungs clear - Cardiovascular Cardiovascular: regular rate, normal S1, normal S2 - Integumentary Integumentary: normal - Neurologic Cranial nerve examination: PERRL, EOMI, VFF, V1/V2/V3 grossly intact, face symmetric, tongue midline Speech examination: intact Detailed motor examination: grossly full strength in all extremities Detailed sensory examination: intact Reflex and gait examination: other (Deep tendon reflexes symmetric gait not tested) Results - Laboratory Findings CBC and BMP: 06/26/16 17:53 06/26/16 17:53 Assessment and Plan (1) Breakthrough seizure Status: Acute Code(s): G40.919 - EPILEPSY, UNSP, INTRACTABLE, WITHOUT STATUS EPILEPTICUS (2) Alcohol abuse Status: Chronic Code(s): F10.10 - ALCOHOL ABUSE, UNCOMPLICATED Plan: The patient is a 31-year-old woman with history of seizure disorder. She also has a history of alcohol abuse and states she last drank any alcohol over 10 days ago.. The patient was hospitalized last summer and was discharged on Keppra but she refused to take it. She states she is willing to take it now. She was advised of the [place] law regarding driving and seizures. She is aware that she cannot drive until spell free for 6 months. The patient received a bolus of 1 g of Keppra IV in the emergency room. Recommend maintenance dose of 750 twice a day the patient had a CT of the brain and cervical spine which was negative.
[2016-06-27] MEDS: levETIRAcetam 250 MG TAB PO SCH (20:32)
[2016-06-27] MEDS: FAMOTIDINE 20 MG TAB PO SCH (20:32)
[2016-06-27 20:53] VITALS: PULSE 77
[2016-06-28] MEDS: SODIUM CHLORIDE 0.9% 1,000 ML IV SCH (05:23)
[2016-06-28] MEDS: KETOROLAC 30 MG/ML 1 ML VIAL IVP PRN (07:34)
[2016-06-28] MEDS: levETIRAcetam 250 MG TAB PO SCH (07:35)
[2016-06-28] MEDS: GABAPENTIN 300 MG CAP PO SCH (07:35)
[2016-06-28] MEDS: DESVENLAFAXINE SUCCINATE 50 MG TAB.ER.24H PO SCH ×2 (07:35→07:39)
[2016-06-28] MEDS: FAMOTIDINE 20 MG TAB PO SCH (07:35)
[2016-06-28 08:28] VITALS: BP 128/89; RESP 18; TEMP 97.9
[2016-06-28] MEDS ORDERED: VERAPAMIL SR 240 MG TABLET.ER PO SCH (09:00)
[2016-06-28 09:08] LABS: Anisocytosis Slight; CH 29.1; CHCM 29.7; HCT 31.9 % (34.0-46.0); HDW 2.13; HGB 9.9 gm/dL (11.4-16.0); Hypochromasia Moderate; MCH 30.3 pg (25.0-35.0); MCHC 30.8 g/dL (31.0-37.0); MCV 98.1 fL (80.0-100.0); Macrocytosis Slight; Mean Platelet Volume 7.7; RBC 3.26 m/uL (3.80-5.40); RDW 19.2 % (11.5-15.5)
[2016-06-28 09:28] LABS: ALT 40 U/L (9-52); AST 42 U/L (14-36); Alkaline Phosphatase 59 U/L (38-126); Anion Gap 10 mmol/L; Blood Urea Nitrogen 9 mg/dL (7-17); Calcium 8.4 mg/dL (8.4-10.2); Carbon Dioxide 21 mmol/L (22-30); Chloride 108 mmol/L (98-107); Glucose 135 mg/dL (74-99); Non-African American GFR(MDRD) >60 (>60 ml/min/1.73 sqM); Potassium 3.8 mmol/L (3.5-5.1); Sodium 139 mmol/L (137-145); Total Bilirubin 0.3 mg/dL (0.2-1.3); Total Protein 6.1 g/dL (6.3-8.2)
--- NOTE | 2016-06-28 10:05 | EEG ---
DATE OF SERVICE: 06/27/2015 INDICATIONS FOR EXAMINATION: This patient is a 31-year-old female being evaluated for alcohol withdrawal seizures. AGE: 31Y FINDINGS: A routine 21-channel awake digital EEG recording was accomplished utilizing the 10 to 20 international system with bipolar and referential montages. The background activity in the most alert resting state consists of a low to medium amplitude fairly well developed and well sustained 7 to 8 Hz activity over the posterior head regions. This posterior rhythm attenuates to eye opening. There is a small amount of low amplitude 18 to 20 Hz beta activity seen maximally over the anterior head regions. Muscle and movement artifact was observed on a few occasions during the tracing. Hyperventilation failed to add any additional information to the tracing. No further activation was noted. Photic stimulation at flash frequencies of 2 to 30 Hz produced a good symmetrical occipital driving response. No epileptiform discharges were seen. IMPRESSION: This EEG is within normal limits for the patient's age. The EEG failed to reveal any focal, lateralizing or epileptiform abnormalities. Clinical correlation is recommended.
--- NOTE | 2016-06-29 07:41 | DS ---
DATE OF ADMISSION: 06/26/2016 DATE OF DISCHARGE: 06/28/2016 Patient is admitted with seizures secondary to noncompliance with Keppra and patient was given IV Keppra and patient is being discharged today on 750 mg of Keppra b.i.d. Patient was seen and examined on the day of discharge. Vitals are stable. PHYSICAL EXAMINATION: GENERAL: The patient is alert and oriented x3, not in any acute distress. Well developed, well nourished. HEENT: Pupils are round and equally reacting to light. EOMI. No scleral icterus. No conjunctival pallor. Normocephalic, atraumatic. No pharyngeal erythema. No thyromegaly. CARDIOVASCULAR: S1 and S2 present. No murmurs, rubs, or gallops. PULMONARY: Chest is clear to auscultation, no wheezing or crackles. ABDOMEN: Soft, nontender, nondistended, normoactive bowel sounds. No palpable organomegaly. MUSCULOSKELETAL: No joint swelling or deformity. EXTREMITIES: No cyanosis, clubbing, or pedal edema. NEUROLOGICAL: Gross neurological examination did not reveal any focal deficits. SKIN: No rashes. FINAL DIAGNOSES: 1. Seizures secondary to noncompliance with medications. 2. Hypertension. Continue with Verapamil. Blood pressure is fairly controlled at this point of time. 3. Gastroesophageal reflux disease. 4. Neuropathy from chronic low back pain. 5. Obesity. 6. Asthma without any acute exacerbation. Nicotine abuse counseling was provided. Patient will be discharged today. Please refer to my depart summary for further details of discharge medications. Spent greater than 35 minutes in total discharge process. Patient will follow with Dr. Jake Hernández on July 04 at 2:45: Dr. Duane Chaney in one week. Cardiac diet. Activity as tolerated.
== END 2016-06-28 10:09 | disposition home or self-care (01) ==
LOC: EC 17:44 → 5MS5E 22:09
PROVIDERS: ADMIT Internal Medicine; ATTEND Internal Medicine
DX: G40.919 Epilepsy, unspecified, intractable, without status epilepticus (principal); F10.239 Alcohol dependence with withdrawal, unspecified; Z91.14 Patient's other noncompliance with medication regimen; I10 Essential (primary) hypertension; R00.0 Tachycardia, unspecified; K21.9 Gastro-esophageal reflux disease without esophagitis; G62.9 Polyneuropathy, unspecified; G89.29 Other chronic pain; M54.5 Low back pain; J45.909 Unspecified asthma, uncomplicated; E66.01 Morbid (severe) obesity due to excess calories; Z68.32 Body mass index [BMI] 32.0-32.9, adult; F17.200 Nicotine dependence, unspecified, uncomplicated; Z79.899 Other long term (current) drug therapy; Z88.0 Allergy status to penicillin; K85.90 Acute pancreatitis without necrosis or infection, unspecified; W10.9XXA Fall (on) (from) unspecified stairs and steps, initial encounter; R51 Headache; Z82.0 Family history of epilepsy and other diseases of the nervous system
CPT/HCPCS: 96361; 96375; 99285; 96374; 36415; 95819; 93005; 80053 ×2; 82150; 83690; 85025; 85027; 81001; 80306; 80320; 72125; 70450; G0378 ×3; J2060 ×2; J3411; J1885 ×3; J1953; 96376

== ENCOUNTER → 2021-04-19 | Outpatient (CLI) | payer OTHER ==
[2021-04-19 18:43] LABS: Basophils # (A) 0.02 X 10*3/uL (0.00-0.10); Basophils % (A) 0.5 %; Eosinophils # (A) 0.02 X 10*3/uL (0.04-0.35); Eosinophils % (A) 0.5 %; HCT 38.7 % (37.2-46.3); HGB 11.8 g/dL (12.0-15.0); Lymphocytes # (A) 1.66 X 10*3/uL (0.90-5.00); Lymphocytes % (A) 41.7 %; MCH 24.1 pg (27.0-32.0); MCHC 30.5 g/dL (32.0-37.0); MCV 79.1 fL (80.0-97.0); Mean Platelet Volume 10.9 fL (9.5-12.2); Monocytes # (A) 0.61 X 10*3/uL (0.20-1.00); Monocytes % (A) 15.3 %; Neutrophils # (A) 1.67 X 10*3/uL (1.80-7.70); Platelet Count 338 X 10*3/uL (140-440); RBC 4.89 X 10*6/uL (4.10-5.20); RDW 15.2 % (11.5-14.5); WBC 3.98 X 10*3/uL (4.50-10.00)
[2021-04-19 20:53] LABS: African American GFR (CKD) 140.3 (60.0-200.0); Albumin 4.3 g/dL (3.8-4.9); Albumin/Globulin Ratio 1.56 (1.60-3.17); Anion Gap 15.7 mmol/L (10.00-18.00); BUN/Creat Ratio 16.16 Ratio (12.00-20.00); Calcium 9.2 mg/dL (8.7-10.3); Carbon Dioxide 21.4 mmol/L (20.0-27.5); Globulin 2.7 g/dL (1.6-3.3); T4, Free (Free Thyroxine) 0.98 ng/dL (0.800-1.800); Total Bilirubin 0.3 mg/dL (0.30-1.20)
[2021-04-19 21:32] LABS: Hepatitis A Antibody IgM Nonreactive (Nonreactive); Hepatitis B Core IgM Nonreactive (Nonreactive); Hepatitis B Surface Antigen Nonreactive (Nonreactive); Hepatitis C IgG Antibody Nonreactive (Nonreactive)
[2021-04-20 03:33] LABS: HIV 2 AB Non-Reactive (Non-Reactive); HIV AB P24 Non-Reactive (Non-Reactive); HIV P24 AG Non-Reactive (Non-Reactive)
[2021-04-20 14:39] LABS: C. trachomatis,PCR Negative (Neg,Equiv); Chlamydia trachomatis Source Urine; N. gonorrhoeae,PCR Negative (Neg,Equiv); Neisseria Source Urine
== END | disposition home or self-care (01) ==
LOC: LABWHC1 11:59
PROVIDERS: ATTEND Family Medicine
DX: U07.1 COVID-19 (principal); I10 Essential (primary) hypertension; Z79.899 Other long term (current) drug therapy
CPT/HCPCS: 84439; 80053; 80074; 84443; 85025; 87491; 87591; 87390; 83036; 36415; U0003; C9803

== ENCOUNTER → 2021-12-26 | Outpatient (CLI) | payer OTHER ==
[2021-12-26 13:46] LABS: Basophils % (A) 1 %; Eosinophils # (A) 0.1 k/uL (0-0.7); Eosinophils % (A) 2 %; HCT 38.4 % (34.0-46.0); HGB 11.7 gm/dL (11.4-16.0); Hypochromasia Slight; Lymphocytes # (A) 2.7 k/uL (1.0-4.8); Lymphocytes % (A) 41 %; MCH 24.5 pg (25.0-35.0); MCHC 30.6 g/dL (31.0-37.0); MCV 80.3 fL (80.0-100.0); Mean Platelet Volume 7.8; Monocytes # (A) 0.4 k/uL (0-1.0); Monocytes % (A) 6 %; Neutrophils # (A) 3.2 k/uL (1.3-7.7); Neutrophils % (A) 49 %; Platelet Count 268 k/uL (150-450); RBC 4.79 m/uL (3.80-5.40); WBC 6.6 k/uL (3.8-10.6)
[2021-12-26 18:49] LABS: ALT 14 U/L (8-44); AST 19 U/L (13-35); Albumin 4.1 g/dL (3.8-4.9); Albumin/Globulin Ratio 1.53 (1.60-3.17); Alkaline Phosphatase 117 U/L (41-126); BUN/Creat Ratio 13.69 Ratio (12.00-20.00); Calcium 9.5 mg/dL (8.7-10.3); Carbon Dioxide 19.7 mmol/L (20.0-27.5); Chloride 105 mmol/L (96-109); Chol/HDL Ratio 5.15 Ratio; Globulin 2.7 g/dL (1.6-3.3); Glucose 92 mg/dL (70-110); LDL Cholesterol,Calculated 126.6 mg/dL (0.0-131.0); Non-African American GFR(CKD) 114.8 (60.0-200.0); Potassium 4.5 mmol/L (3.5-5.5); Sodium 138 mmol/L (135-145); Total Bilirubin <0.15 mg/dL (0.30-1.20); Total Protein 6.8 g/dL (6.2-8.2)
== END | disposition home or self-care (01) ==
LOC: LABWHC1 12:22
PROVIDERS: ATTEND Family Medicine
DX: I10 Essential (primary) hypertension (principal); Z79.899 Other long term (current) drug therapy; E11.9 Type 2 diabetes mellitus without complications; B89 Unspecified parasitic disease
CPT/HCPCS: 36415; 80053; 80061; 82306; 82607; 82746; 83036; 84443; 85025

== ENCOUNTER → 2022-05-24 | Outpatient (CLI) | payer OTHER ==
[2022-05-24 15:52] VITALS: BP 114/71; PULSE 93; TEMP 98.4; BMI 53.4
--- NOTE | 2022-05-24 16:18 | P.HPBAR ---
Bariatric H&P - History & Physicial H&P Date: 05/24/22 History & Physicial: Visit/CC: new patient Patient initial contact: Initial weight: Initial weight in pounds: Height: 5 ft 7.5 in Initial BMI: Last weight: Current weight: 156.898 kg Current weight in pounds: 345.90 Current BMI: 53.4 [place] body weight (based on NIH guidelines): 62.369 kg Excess body weight loss: The patient is a 37 year-old F who presents for Bariatric Assessment. She presents first time and is looking into the gastric bypass. Highest weight is present. She has tried excercise, medical shots for medical supervised weight loss. Most weight loss is 3 pounds. Her sister has troubles with her weight. She has GERD. She still has her gallbladder. She wants to get down to 220 pounds. She is 345 pounds. No prior abdominal surgery. Past Medical History Past Medical History: Asthma, GERD/Reflux, Hypertension, Seizure Disorder History of Any Multi-Drug Resistant Organisms: None Reported Past Surgical History: No Surgical Hx Reported Additional Past Surgical History / Comment(s): tooth extractions Past Anesthesia/Blood Transfusion Reactions: No Reported Reaction Past Psychological History: Anxiety, Depression, Panic Disorder Smoking Status: Current every day smoker Past Alcohol Use History: Rare Past Drug Use History: None Reported - Past Family History Mother Family Medical History: Asthma, Diabetes Mellitus, Hypertension Surgical - Exam Vital Signs Temp Pulse BP 98.4 F 93 114/71 05/24/22 15:39 05/24/22 15:39 05/24/22 15:39 Bariatric Checklist Checklist: Plan: Checklist: EGD: 1. Hiatal hernia: 2. H. Pylori: HgbA1c: Vitamin D: Smoking: Current every day smoker Primary care physician referral: Dr. Cartwright Psychiatry clearance: Cardiology clearance: Sleep study: Diet journal: VTE risk score: VTE risk level: Rehab needs at discharge:
== END ==
LOC: BARWHC3 14:49
PROVIDERS: ATTEND Surgery Plastic and Reconstructive Surgery
DX: E66.01 Morbid (severe) obesity due to excess calories (principal); J45.909 Unspecified asthma, uncomplicated; K21.9 Gastro-esophageal reflux disease without esophagitis; I10 Essential (primary) hypertension; F17.200 Nicotine dependence, unspecified, uncomplicated; Z68.43 Body mass index [BMI] 50.0-59.9, adult; Z88.0 Allergy status to penicillin
CPT/HCPCS: 99213

== ENCOUNTER → 2022-12-21 | Outpatient (CLI) | payer OTHER ==
--- NOTE | 2022-12-21 13:55 | US ---
EXAMINATION TYPE: US venous doppler duplex LE BI DATE OF EXAM: 12/21/2022 1:28 PM COMPARISON: NONE CLINICAL INDICATION: Female, 37 years old with history of I82.409 POSSIBLE DVT; pain SIDE PERFORMED: Bilateral TECHNIQUE: The lower extremity deep venous system is examined utilizing real time linear array sonog ra with graded compression, doppler sonography and color-flow sonography. VESSELS IMAGED: Common Femoral Vein Deep Femoral Vein Greater Saphenous Vein * Femoral Vein Popliteal Vein Small Saphenous Vein * Proximal Calf Veins (* superficial vessels) Right Leg: Negative for DVT Left Leg: Negative for DVT IMPRESSION: No evidence for DVT within the bilateral lower extremities imaged from the groin to the upper calves.
[2022-12-21 16:00] LABS: ALT 16 U/L (4-34); AST 22 U/L (14-36); African American GFR (CKD) >90 (>60 ml/min/1.73 sqM); Albumin 3.7 g/dL (3.5-5.0); Albumin/Globulin Ratio 1.1; Alkaline Phosphatase 98 U/L (38-126); Anion Gap 6 mmol/L; Blood Urea Nitrogen 13 mg/dL (7-17); Calcium 9.2 mg/dL (8.4-10.2); Carbon Dioxide 26 mmol/L (22-30); Chloride 105 mmol/L (98-107); Globulin 3.3 g/dL; Glucose 84 mg/dL (74-99); NT-Pro-B-Type Natriuretic Pept 143 pg/mL; Non-African American GFR(CKD) >90 (>60 ml/min/1.73 sqM); Potassium 4.3 mmol/L (3.5-5.1); Sodium 137 mmol/L (137-145); Total Bilirubin 0.3 mg/dL (0.2-1.3)
[2022-12-21 21:03] LABS: Chol/HDL Ratio 3.74 Ratio; LDL Cholesterol,Calculated 113.1 mg/dL (0.0-131.0)
[2022-12-21 21:18] LABS: HCT 37.8 % (37.2-46.3); HGB 10.8 d/dL (12.0-15.0); MCH 22.5 pg (27.0-32.0); MCHC 28.6 d/dL (32.0-37.0); MCV 78.9 FL (80.0-97.0); Mean Platelet Volume 10.9 FL (9.5-12.2); NRBC Per 100 WBC 0 X 10*3/uL (0.00-0.01); Platelet Count 374 X 10*3/uL (140-440); RBC 4.79 X 10*6/uL (4.10-5.20); RDW 14.8 % (11.5-14.5); WBC 6.09 X 10*3/uL (4.50-10.00)
== END | disposition home or self-care (01) ==
LOC: RADUSWWP 13:01
PROVIDERS: ATTEND Family Medicine
DX: I82.403 Acute embolism and thrombosis of unspecified deep veins of lower extremity, bilateral (principal)
CPT/HCPCS: 80053; 80061; 82607; 82746; 83036; 83880; 84443; 85027; 93970

== ENCOUNTER → 2023-01-24 | Outpatient (CLI) | payer OTHER ==
[2023-01-24 08:51] VITALS: BP 110/78; PULSE 79; RESP 17; TEMP 98.9
--- NOTE | 2023-01-24 09:49 | P.HPOB ---
History of Present Illness H&P Date: 01/24/23 Chief Complaint: The patient is here for her routine gynecologic exam. This is a 37-year-old with an LMP of 01/15/2023. The patient is here to establish with this office. She thinks it has been about 10 years since her last pelvic exam, but she is not sure. She has not been sexually active for many months. She is a . Her menstrual periods are regular every month. She has had occasional sharp right breast pains without nipple discharge. The pains are brief and sometimes feels like someone is pinching her. She is not sure if it is related to her menstrual period. Review of Systems She has lost about 10 pounds over the past year and she has been trying to lose weight. She denies respiratory or cardiac problems. GI: Occasional constipation. Past Medical History Past Medical History: Asthma, GERD/Reflux, Seizure Disorder Additional Past Medical History / Comment(s): Seizure disorder since 2013. Chronic back pain and left side neuropathy. Chronic edema. 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 History of Any Multi-Drug Resistant Organisms: None Reported Past Surgical History: No Surgical Hx Reported Additional Past Surgical History / Comment(s): tooth extractions Past Anesthesia/Blood Transfusion Reactions: No Reported Reaction Past Psychological History: Anxiety, Depression, Panic Disorder Smoking Status: Current every day smoker (About 4 cigarettes per day, down from 1 pack per day.) Past Alcohol Use History: Rare Past Drug Use History: None Reported Additional Drug Use History / Comment(s): She has been a since 2019. She did have one sexual partner after becoming a up until May 2022, when this partner . She has not been sexually active since then. 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 - Past Family History Mother Family Medical History: Asthma, Diabetes Mellitus, Hypertension Father Additional Family Medical History / Comment(s): Alzheimer's disease. Brother(s) Family Medical History: Diabetes Mellitus, Hypertension Additional Family Medical History / Comment(s): ADHD. Medications and Allergies Home Medications Medication Instructions Recorded Confirmed Type Gabapentin [Neurontin] 300 mg PO TID 06/26/16 01/24/23 History Ranitidine HCl [Zantac] 150 mg PO BID 06/26/16 01/24/23 History levETIRAcetam [Keppra] 750 mg PO Q12HR #60 tab 06/28/16 01/24/23 Rx ALPRAZolam [Xanax] 1 mg PO BID PRN 05/24/22 01/24/23 History Furosemide [Lasix] 20 mg PO DAILY 05/24/22 01/24/23 History HYDROcodone/APAP 10-325MG [[place] 1 tab PO BID PRN 05/24/22 01/24/23 History 10-325] Lacosamide [Vimpat] 200 mg PO BID 05/24/22 01/24/23 History Allergies Allergy/AdvReac Type Severity Reaction Status Date / Time Penicillins Allergy Rash/Hives Verified 01/24/23 08:47 Exam Vital Signs Temp Pulse Resp BP Pulse Ox 01/24/23 08:48 98.9 F 79 17 110/78 96 Intake and Output 01/23/23 01/24/23 01/24/23 22:59 06:59 14:59 Other: Weight 155.129 kg Height 5 feet 5 inches, weight 342 pounds, BMI 56.9. This is a well-developed well-nourished obese black female who is alert and oriented times 3 in no acute distress. HEENT: Within normal limits. NECK: Supple without mass or thyromegaly. CHEST AND LUNGS: Clear to auscultation. HEART: Regular rate and rhythm. BREASTS: Are without mass or discharge. Breasts are minimally tender bilaterally. AXILLARY EXAM: Negative for adenopathy. BACK: Negative for CVA tenderness. ABDOMEN: Soft, obese nontender, without palpable masses. PELVIC EXAM: Normal external genitalia. Cervix and vagina appear normal. There is no unusual discharge. There is no evidence of prolapse. The uterus is midposition, nongravid size and nontender. There are no palpable adnexal masses or tenderness. Bimanual examination is somewhat limited secondary to her size. RECTAL EXAM: negative for mass or tenderness. EXTREMITIES: Nontender. IMPRESSION: 1. 37-year-old female with normal gynecologic exam. 2. Intermittent right mastodynia without any significant physical findings on exam today. 3. Obesity. PLAN: 1. Pap smear cotest was performed. 2. The patient will try to be aware of changes with her breasts. She understands that caffeine and chocolate may increase sensitivity to the breasts. She'll try to cut back on these things. She will call if she is having worsening symptoms or notices changes in the breast. We will consider breast imaging isn't symptoms are not improving. We will plan on doing routine screening at age 41. 3. GC and Chlamydia screen was obtained from the cervix. 4. STD prevention was discussed. I recommended limiting sexual partners and I recommended that she use condoms if she is sexually active. 5. She was advised to return in one year for her annual well woman exam and as needed.
[2023-01-25 12:56] LABS: C. trachomatis,PCR Negative (Negative)
[2023-01-25 13:05] LABS: N. gonorrhoeae,PCR Negative (Negative)
== END ==
LOC: WWCWWP 08:41
PROVIDERS: ATTEND Obstetrics & Gynecology
DX: Z01.419 Encounter for gynecological examination (general) (routine) without abnormal findings (principal); N64.4 Mastodynia; E66.9 Obesity, unspecified; G40.909 Epilepsy, unspecified, not intractable, without status epilepticus; F17.210 Nicotine dependence, cigarettes, uncomplicated; G89.29 Other chronic pain; J45.909 Unspecified asthma, uncomplicated; K21.9 Gastro-esophageal reflux disease without esophagitis; Z88.0 Allergy status to penicillin; Z12.31 Encounter for screening mammogram for malignant neoplasm of breast; Z68.43 Body mass index [BMI] 50.0-59.9, adult
CPT/HCPCS: 87491; 87591